=== PATIENT | male | born 1975 | race Caucasian/White ===

== ENCOUNTER 2018-03-11 11:54 | Emergency (ER) | payer MEDICARE, MEDICAID ==
[~2018-03-11] VITALS: Ht 177.8 cm; Wt 75.0 kg
[~2018-03-11 11:54] MED LIST: ALBU6.7H INH; AMOX500C2 PO; AZIT250T PO; OMEP20CA10 PO; ONDA4TAB12 PO
[2018-03-11 12:04] VITALS: BP 109/70
[2018-03-11 12:28] LABS: BASOPHILS # (AUTO) 0.1 X10'3 (0-0.2); BASOPHILS % (AUTO) 0.6 % (0-1); EOSINOPHILS # (AUTO) 0.3 X10'3 (0-0.9); EOSINOPHILS % (AUTO) 3.1 % (0-6); HEMATOCRIT 46.9 % (42.0-52.0); HEMOGLOBIN 15.2 g/dl (14.0-17.9); LYMPHOCYTES # (AUTO) 1.9 X10'3 (1.1-4.8); LYMPHOCYTES % (AUTO) 17.3 % (21-51); MEAN CORPUSCULAR HEMOGLOBIN 28.3 PG (27.0-31.0); MEAN CORPUSCULAR HGB CONC 32.5 % (33.0-36.5); MEAN CORPUSCULAR VOLUME 87.2 FL (78-98); MONOCYTES # (AUTO) 1.1 X10'3 (0-0.9); MONOCYTES % (AUTO) 9.9 % (2-12); NEUTROPHILS # (AUTO) 7.6 X10'3 (1.8-7.7); NEUTROPHILS % (AUTO) 69.1 % (42-75); PLATELET COUNT 251 X10'3 (140-440); RED BLOOD COUNT 5.38 X10'6 (4.70-6.10); RED CELL DISTRIBUTION WIDTH 13.5 % (11.5-14.5)
[2018-03-11 12:50] LABS: ALANINE AMINOTRANSFERASE 25 U/L (12-78); ALBUMIN 3.6 G/DL (3.4-5.0); ALBUMIN/GLOBULIN RATIO 1.1 (1.1-1.5); ALKALINE PHOSPHATASE 125 IU/L (46-116); ANION GAP 9 (8-16); ASPARTATE AMINO TRANSFERASE 13 U/L (10-37); BILIRUBIN,TOTAL 0.3 MG/DL (0.1-1.0); BLOOD UREA NITROGEN 10 MG/DL (7-18); BUN/CREATININE RATIO 10.4 (5.4-32.0); CHLORIDE 106 MMOL/L (99-107); CREATININE 0.96 MG/DL (0.60-1.10); GLUCOSE 93 MG/DL (70-104); POTASSIUM 3.7 MMOL/L (3.5-5.1); SODIUM 142 MMOL/L (135-145); TOTAL CARBON DIOXIDE 26.9 MMOL/L (24-32); TOTAL PROTEIN 6.9 G/DL (6.4-8.2); eGFR 85 ML/MIN
[2018-03-11 13:28] LABS: PARTIAL THROMBOPLASTIN TIME 31 SECONDS (22-32); PROTHROMBIN TIME 9.9 SECONDS (9.0-12.0)
[2018-03-11] MEDS ORDERED: ipratropium/albuterol 3ml nebule NEB ONE (13:30)
== END 2018-03-11 14:37 | disposition home or self-care (01) ==
LOC: ER 11:54
DX: B34.9 Viral infection, unspecified (principal); F17.200 Nicotine dependence, unspecified, uncomplicated; Z71.6 Tobacco abuse counseling; Z98.890 Other specified postprocedural states; Z79.899 Other long term (current) drug therapy
CPT/HCPCS: 36415; 71045; 80053; 84484; 85025; 85610; 85730; 93005; 94640; 94760; 99284

== ENCOUNTER 2019-03-27 08:04 | Emergency (ER) | payer MEDICARE, MEDICAID ==
[~2019-03-27] VITALS: Ht 180.3 cm; Wt 63.1 kg
[~2019-03-27 08:04] MED LIST changes: -ALBU6.7H INH; +ALBU6.7H9 INH; +OMEP-297 PO; -OMEP20CA10 PO
[2019-03-27 08:29] LABS: CLARITY,URINE CLEAR (Clear); COLOR,URINE YELLOW (Yellow); GLUCOSE, URINE NEGATIVE (Neg); KETONES,URINE NEGATIVE (Neg); LEUKOCYTE ESTERASE ,URINE NEGATIVE (Neg); NITRITES, URINE NEGATIVE (Neg); OCCULT BLOOD,URINE NEGATIVE (Neg); PH,URINE 6.5 (4.8-8.0); PROTEIN,URINE NEGATIVE (Neg)
[2019-03-27 08:30] LABS: UA COLLECTION TYPE NON-SPECIFIED
[2019-03-27 08:35] LABS: BASOPHILS # (AUTO) 0.1 X10'3 (0-0.2); BASOPHILS % (AUTO) 0.9 % (0-1); EOSINOPHILS # (AUTO) 0.2 X10'3 (0-0.9); EOSINOPHILS % (AUTO) 1.4 % (0-6); HEMOGLOBIN 16.6 g/dl (14.0-17.9); LYMPHOCYTES # (AUTO) 2.3 X10'3 (1.1-4.8); LYMPHOCYTES % (AUTO) 19.2 % (21-51); MEAN CORPUSCULAR HEMOGLOBIN 29.4 PG (27.0-31.0); MEAN CORPUSCULAR HGB CONC 33.8 g/dL (33.0-36.5); MEAN CORPUSCULAR VOLUME 86.9 FL (78-98); MEAN PLATELET VOLUME 8.6 FL (7.4-10.4); MONOCYTES # (AUTO) 0.9 X10'3 (0-0.9); MONOCYTES % (AUTO) 7.4 % (2-12); NEUTROPHILS # (AUTO) 8.4 X10'3 (1.8-7.7); NEUTROPHILS % (AUTO) 71.1 % (42-75); PLATELET COUNT 281 X10'3 (140-440); RED BLOOD COUNT 5.64 X10'6 (4.70-6.10); RED CELL DISTRIBUTION WIDTH 13.1 % (11.5-14.5); WHITE BLOOD COUNT 11.8 X10'3 (4.5-11.0)
[2019-03-27 08:49] LABS: ALANINE AMINOTRANSFERASE 26 U/L (12-78); ALBUMIN/GLOBULIN RATIO 1.3 (1.1-1.5); ALKALINE PHOSPHATASE 117 IU/L (46-116); ANION GAP 2 (8-16); ASPARTATE AMINO TRANSFERASE 13 U/L (10-37); BILIRUBIN,TOTAL 0.6 MG/DL (0.1-1.0); BLOOD UREA NITROGEN 10 MG/DL (7-18); BUN/CREATININE RATIO 9.2 (5.4-32.0); CALCIUM 9.2 MG/DL (8.5-10.1); CHLORIDE 105 MMOL/L (99-107); CREATININE 1.09 MG/DL (0.60-1.10); GLUCOSE 101 MG/DL (70-104); LIPASE 153 U/L (73-393); POTASSIUM 4.1 MMOL/L (3.5-5.1); SODIUM 140 MMOL/L (135-145); TOTAL CARBON DIOXIDE 32.6 MMOL/L (24-32); TOTAL PROTEIN 7.1 G/DL (6.4-8.2); eGFR 73 ML/MIN
[2019-03-27] MEDS ORDERED: POLY17PO10 PO (09:45)
[2019-03-27 09:56] VITALS: BP 120/87
== END 2019-03-27 09:59 | disposition home or self-care (01) ==
LOC: ER 08:05
DX: K59.00 Constipation, unspecified (principal); R11.2 Nausea with vomiting, unspecified; R10.84 Generalized abdominal pain; Z98.890 Other specified postprocedural states; Z79.899 Other long term (current) drug therapy
CPT/HCPCS: 36415; 74176; 80053; 81003; 83690; 85025; 99284

== ENCOUNTER 2019-03-29 19:37 | Emergency (ER) | payer MEDICARE, MEDICAID ==
[~2019-03-29] VITALS: Ht 180.3 cm; Wt 78.0 kg
[~2019-03-29 19:37] MED LIST changes: +POLY17PO10 PO
[2019-03-29 20:20] LABS: BASOPHILS # (AUTO) 0.1 X10'3 (0-0.2); BASOPHILS % (AUTO) 0.5 % (0-1); EOSINOPHILS # (AUTO) 0.2 X10'3 (0-0.9); EOSINOPHILS % (AUTO) 1.7 % (0-6); HEMATOCRIT 50.2 % (42.0-52.0); HEMOGLOBIN 17.1 g/dl (14.0-17.9); LYMPHOCYTES # (AUTO) 1.8 X10'3 (1.1-4.8); LYMPHOCYTES % (AUTO) 13.7 % (21-51); MEAN CORPUSCULAR HEMOGLOBIN 29.7 PG (27.0-31.0); MEAN CORPUSCULAR HGB CONC 34.1 g/dL (33.0-36.5); MEAN PLATELET VOLUME 8.8 FL (7.4-10.4); MONOCYTES # (AUTO) 1.4 X10'3 (0-0.9); MONOCYTES % (AUTO) 11.1 % (2-12); NEUTROPHILS # (AUTO) 9.5 X10'3 (1.8-7.7); PLATELET COUNT 274 X10'3 (140-440); RED BLOOD COUNT 5.77 X10'6 (4.70-6.10); RED CELL DISTRIBUTION WIDTH 12.7 % (11.5-14.5)
[2019-03-29 20:30] LABS: ALANINE AMINOTRANSFERASE 25 U/L (12-78); ALBUMIN 4.2 G/DL (3.4-5.0); ALBUMIN/GLOBULIN RATIO 1.3 (1.1-1.5); ALKALINE PHOSPHATASE 129 IU/L (46-116); ANION GAP 6 (8-16); ASPARTATE AMINO TRANSFERASE 16 U/L (10-37); BILIRUBIN,TOTAL 0.7 MG/DL (0.1-1.0); BLOOD UREA NITROGEN 19 MG/DL (7-18); BUN/CREATININE RATIO 16.4 (5.4-32.0); CHLORIDE 99 MMOL/L (99-107); CREATININE 1.16 MG/DL (0.60-1.10); ETHANOL < 0.010 GM/DL (0.0-0.010); GLUCOSE 103 MG/DL (70-104); LIPASE 368 U/L (73-393); POTASSIUM 3.8 MMOL/L (3.5-5.1); SODIUM 137 MMOL/L (135-145); TOTAL CARBON DIOXIDE 31.8 MMOL/L (24-32); TOTAL PROTEIN 7.5 G/DL (6.4-8.2); eGFR 68 ML/MIN
[2019-03-29 20:31] LABS: PARTIAL THROMBOPLASTIN TIME 28 SECONDS (22-32)
[2019-03-29] MEDS ORDERED: ONDA4TAB6 PO (20:44)
[2019-03-29 20:59] VITALS: BP 118/80
[2019-04-02] MEDS ORDERED: NO HOME MEDS (16:24)
== END 2019-03-29 21:00 | disposition home or self-care (01) ==
LOC: ER 19:38
DX: K29.00 Acute gastritis without bleeding (principal); K59.00 Constipation, unspecified; Z98.890 Other specified postprocedural states; Z79.2 Long term (current) use of antibiotics; Z79.899 Other long term (current) drug therapy
CPT/HCPCS: 36415; 80053; 80320; 83690; 83735; 85025; 85610; 85730; 93005; 99284

== ENCOUNTER 2020-08-30 09:59 | Emergency (ER) | payer MEDICARE, MEDICAID ==
[~2020-08-30] VITALS: Ht 172.7 cm; Wt 92.7 kg
[~2020-08-30 09:59] MED LIST changes: -ALBU6.7H9 INH; -AMOX500C2 PO; -AZIT250T PO; -OMEP-297 PO; -ONDA4TAB12 PO; +PANT-47 PO; -POLY17PO10 PO
[2020-08-30 10:19] VITALS: BP 118/75
[2020-08-30] MEDS ORDERED: ketorolac tromethamine 15mg/ml inj. IM ONE (10:40)
[2020-08-30] MEDS ORDERED: IBUP-1984 PO (11:15)
[2020-08-30] MEDS ORDERED: bacitracin 15gm ointment TP ONE (11:15)
== END 2020-08-30 11:36 | disposition home or self-care (01) ==
LOC: ER 10:00
DX: S20.212A Contusion of left front wall of thorax, initial encounter (principal); Z79.899 Other long term (current) drug therapy; W22.8XXA Striking against or struck by other objects, initial encounter; Y93.89 Activity, other specified; Y92.89 Other specified places as the place of occurrence of the external cause; Y99.8 Other external cause status
CPT/HCPCS: 71045; 96372; 99283; J1885

== ENCOUNTER 2021-06-06 17:01 | Emergency (ER) | payer MEDICARE, MEDICAID ==
[~2021-06-06] VITALS: Ht 175.3 cm; Wt 100.0 kg
[2021-06-06 17:28] VITALS: BP 137/92
== END 2021-06-06 17:45 | disposition home or self-care (01) ==
LOC: ER 17:02
DX: J06.9 Acute upper respiratory infection, unspecified (principal); Z98.890 Other specified postprocedural states; Z79.899 Other long term (current) drug therapy
CPT/HCPCS: 99282

== ENCOUNTER 2021-08-13 17:38 | Emergency (ER) | payer MEDICARE, MEDICAID ==
[~2021-08-13] VITALS: Ht 177.8 cm; Wt 92.7 kg
[2021-08-13] MEDS ORDERED: ipratropium/albuterol 3ml nebule NEB ONE (17:45)
[2021-08-13 17:46] VITALS: BP 123/81
[2021-08-13] MEDS ORDERED: AZIT250T2 PO (19:12)
[2021-08-13] MEDS ORDERED: ALB0.5UD IH (19:12)
[2021-08-13] MEDS ORDERED: PRED20TA PO (19:12)
== END 2021-08-13 19:34 | disposition home or self-care (01) ==
LOC: ER 17:46
DX: J06.9 Acute upper respiratory infection, unspecified (principal); R05.9 Cough, unspecified; R06.02 Shortness of breath; Z98.890 Other specified postprocedural states; Z79.2 Long term (current) use of antibiotics; Z79.899 Other long term (current) drug therapy
CPT/HCPCS: 71045; 87502; 87503; 94640; 94760; 99284

== ENCOUNTER 2022-07-09 16:47 | Inpatient (IN) | payer MEDICARE, MEDICAID ==
[~2022-07-09] VITALS: Ht 175.3 cm; Wt 69.1 kg
[~2022-07-09 16:47] MED LIST changes: +ALBU6.7H14 INH; +CARV3.12 PO; +ESCI10TA PO; +NICO-631 TD; +TAM75C PO
[2022-07-09] MEDS ORDERED: albuterol 2.5 MG/3 ML nebule CONTNEB ONE (16:55)
[2022-07-09] MEDS ORDERED: ipratropium/albuterol 3ml nebule NEB ONE (16:55)
[2022-07-09] MEDS ORDERED: methylPREDNISolone sod succ 125mg/2ml vial IV ONE (16:55)
--- NOTE | 2022-07-09 16:59 | NUR ---
Paged RT for G
[2022-07-09] MEDS ORDERED: normal saline 1000ML IV soln IVB ONE (17:00)
[2022-07-09] MEDS ORDERED: magnesium 2GM in 50ml NS 50 ML IV ONE (17:00)
[2022-07-09] MEDS ORDERED: CefTRIAXone 2gm/D5W 50ml BAG 50 ML IV ONE (17:05)
[2022-07-09 17:23] LABS: BASOPHILS # (AUTO) 0.1 X10'3 (0-0.2); EOSINOPHILS # (AUTO) 0.6 X10'3 (0-0.9); EOSINOPHILS % (AUTO) 4.1 % (0-6); HEMATOCRIT 45.5 % (42.0-52.0); HEMOGLOBIN 14.6 g/dl (14.0-17.9); LYMPHOCYTES # (AUTO) 2.9 X10'3 (1.1-4.8); LYMPHOCYTES % (AUTO) 19.9 % (21-51); MEAN CORPUSCULAR HEMOGLOBIN 27.3 PG (27.0-31.0); MEAN CORPUSCULAR HGB CONC 32.1 g/dL (33.0-36.5); MEAN CORPUSCULAR VOLUME 85.1 FL (78-98); MEAN PLATELET VOLUME 8.3 FL (7.4-10.4); MONOCYTES # (AUTO) 1.7 X10'3 (0-0.9); MONOCYTES % (AUTO) 11.7 % (2-12); NEUTROPHILS # (AUTO) 9.1 X10'3 (1.8-7.7); NEUTROPHILS % (AUTO) 63.3 % (42-75); PLATELET COUNT 317 X10'3 (140-440); RED BLOOD COUNT 5.35 X10'6 (4.70-6.10); WHITE BLOOD COUNT 14.4 X10'3 (4.5-11.0)
[2022-07-09 17:32] LABS: ABG BASE EXCESS -1.6 mmol/L (-2.0-2.0); ABG HCO3 28.3 mmol/L (22.0-26.0); ABG OXYGEN SATURATION 98.7 % (94-97); ABG PCO2 (T) 72.2 mmHg (35.0-48.0); ABG PO2 (T) 150.4 mmHg (75.0-100.0); ALLEN'S TEST POSITIVE; FCOHb 2.7 % (0.0-3.9); FLOW 8 L/min; FMetHb 0.4 % (0.0-1.5); FO2Hb 95.6 % (94-97); TOTAL HEMOGLOBIN 15.3 G/dl (14.0-17.9)
[2022-07-09 17:38] LABS: ALANINE AMINOTRANSFERASE 23 U/L (12-78); ALBUMIN 3.8 G/DL (3.4-5.0); ALKALINE PHOSPHATASE 142 IU/L (46-116); ANION GAP 9 (8-16); ASPARTATE AMINO TRANSFERASE 17 U/L (10-37); BILIRUBIN,TOTAL 0.3 MG/DL (0.1-1.0); BLOOD UREA NITROGEN 17 MG/DL (7-18); CALCIUM 8.9 MG/DL (8.5-10.1); CHLORIDE 106 MMOL/L (99-107); CREATININE 0.81 MG/DL (0.60-1.10); GLUCOSE 99 MG/DL (70-104); POTASSIUM 4.8 MMOL/L (3.5-5.1); SODIUM 143 MMOL/L (135-145); TOTAL CARBON DIOXIDE 28.4 MMOL/L (24-32); TOTAL PROTEIN 7.8 G/DL (6.4-8.2); eGFR > 90 ML/MIN
--- NOTE | 2022-07-09 18:04 | NUR ---
Patient hooked to BIPAP at 50% FiO2 by RT
[2022-07-09] MEDS ORDERED: potassium Cl 20 mEq SR tablet PO PRN ×2 (19:45)
[2022-07-09] MEDS ORDERED: mag hydrox/Alum hydrox/simeth 30ml oral suspension PO PRN (19:45)
[2022-07-09] MEDS ORDERED: acetaminophen 325mg tablet PO PRN (19:45)
[2022-07-09] MEDS ORDERED: potassium Cl 40MEQ/1/2NS 520ml 520 ML IV PRN (19:45)
[2022-07-09] MEDS ORDERED: magnesium hydroxide 30ml (MOM) UD suspension PO PRN (19:45)
[2022-07-09] MEDS ORDERED: magnesium 4gm in 100ml NS 100 ML IV PRN (19:45)
[2022-07-09] MEDS ORDERED: magnesium Cl slow-release 64mg tablet PO PRN (19:45)
[2022-07-09] MEDS ORDERED: ondansetron/PF 4mg/2ml inj IV PRN (19:45)
[2022-07-09] MEDS ORDERED: magnesium 2GM in 50ml NS 50 ML IV PRN (19:45)
[2022-07-09] MEDS ORDERED: prednisone 10mg tablet PO SCH (20:00)
[2022-07-09 20:32] LABS: ABG BASE EXCESS -1.5 mmol/L (-2.0-2.0); ABG HCO3 25.6 mmol/L (22.0-26.0); ABG OXYGEN SATURATION 98.1 % (94-97); ABG PCO2 (T) 52.4 mmHg (35.0-48.0); ABG PO2 (T) 110.8 mmHg (75.0-100.0); ALLEN'S TEST POSITIVE; FCOHb 1.6 % (0.0-3.9); FMetHb 0.4 % (0.0-1.5); FO2Hb 96.1 % (94-97); RESPIRATORY RATE 12 b/min; TOTAL HEMOGLOBIN 14.6 G/dl (14.0-17.9)
[2022-07-09] MEDS: K and/or MAG REPLACEMENT MC SCH (21:25)
[2022-07-09] MEDS: docusate sod 100mg capsule PO SCH (21:38)
[2022-07-09] MEDS: predniSONE 20 mg tablet PO SCH (21:44)
[2022-07-09] MEDS: heparin, porcine 5000 units/ml vial SQ SCH (21:45)
[2022-07-10] MEDS: albuterol 2.5 MG/3 ML nebule NEB PRN ×2 (02:59→17:37)
[2022-07-10] MEDS ORDERED: ALBU18HF2 PO ×2 (04:36→17:58)
[2022-07-10] MEDS ORDERED: PANT40TA54 PO (04:36)
[2022-07-10] MEDS ORDERED: FLUT1BLS4 INH ×2 (04:36→17:58)
[2022-07-10] MEDS ORDERED: ESCI-8 PO (04:36)
[2022-07-10] MEDS ORDERED: CARV3.122 PO (04:36)
[2022-07-10] MEDS ORDERED: IPRA3AMP31 NEB ×2 (04:36→17:58)
[2022-07-10 05:05] LABS: BASOPHILS # (AUTO) 0.1 X10'3 (0-0.2); BASOPHILS % (AUTO) 0.6 % (0-1); EOSINOPHILS % (AUTO) 0.1 % (0-6); HEMATOCRIT 42.8 % (42.0-52.0); LYMPHOCYTES # (AUTO) 0.9 X10'3 (1.1-4.8); MEAN CORPUSCULAR HGB CONC 32.8 g/dL (33.0-36.5); MEAN CORPUSCULAR VOLUME 85.2 FL (78-98); MEAN PLATELET VOLUME 8.4 FL (7.4-10.4); MONOCYTES # (AUTO) 0.1 X10'3 (0-0.9); MONOCYTES % (AUTO) 0.9 % (2-12); NEUTROPHILS # (AUTO) 9.9 X10'3 (1.8-7.7); NEUTROPHILS % (AUTO) 90.4 % (42-75); PLATELET COUNT 274 X10'3 (140-440); RED BLOOD COUNT 5.02 X10'6 (4.70-6.10); RED CELL DISTRIBUTION WIDTH 14.1 % (11.5-14.5); WHITE BLOOD COUNT 10.9 X10'3 (4.5-11.0)
[2022-07-10 05:19] LABS: ALANINE AMINOTRANSFERASE 23 U/L (12-78); ALBUMIN 3.4 G/DL (3.4-5.0); ALBUMIN/GLOBULIN RATIO 0.9 (1.1-1.5); ALKALINE PHOSPHATASE 127 IU/L (46-116); ANION GAP 8 (8-16); ASPARTATE AMINO TRANSFERASE 18 U/L (10-37); BILIRUBIN,TOTAL 0.2 MG/DL (0.1-1.0); BLOOD UREA NITROGEN 16 MG/DL (7-18); BUN/CREATININE RATIO 21.6 (10.0-20.0); CALCIUM 9.1 MG/DL (8.5-10.1); CHLORIDE 105 MMOL/L (99-107); CREATININE 0.74 MG/DL (0.60-1.10); GLUCOSE 142 MG/DL (70-104); MAGNESIUM 2.9 MG/DL (1.5-2.4); SODIUM 139 MMOL/L (135-145); TOTAL PROTEIN 7.3 G/DL (6.4-8.2); eGFR > 90 ML/MIN
[2022-07-10] MEDS: ipratropium/albuterol 3ml nebule NEB SCH ×2 (07:09→14:43)
[2022-07-10] MEDS ORDERED: pantoprazole 40mg Tablet.DR PO SCH (07:30)
[2022-07-10] MEDS ORDERED: ESCITALOPRAM OXALATE 5 MG TABLET PO SCH (08:00)
[2022-07-10] MEDS ORDERED: budesonide 0.5mg/2ml UD nebule IH SCH (08:00)
[2022-07-10] MEDS ORDERED: carVEDilol 3.125mg tablet PO SCH (08:00)
[2022-07-10] MEDS ORDERED: CefTRIAXone/D5W-Rocephin 1gm 50 ML IV SCH (08:00)
[2022-07-10] MEDS: docusate sod 100mg capsule PO SCH (09:12)
[2022-07-10] MEDS: heparin, porcine 5000 units/ml vial SQ SCH (09:14)
[2022-07-10] MEDS: K and/or MAG REPLACEMENT MC SCH (09:15)
[2022-07-10] MEDS: predniSONE 20 mg tablet PO SCH (09:21)
--- NOTE | 2022-07-10 16:47 | NUR ---
Received report from Zaida BILLY. Patient will be coming up in a wheelchair.
--- NOTE | 2022-07-10 16:51 | NUR ---
Patient arrived to unit via wheel chair. No complaints of pain or discomfort noted at this time.
[2022-07-10 17:07] VITALS: BP 133/77
[2022-07-10] MEDS ORDERED: PRED20TA PO (17:58)
--- NOTE | 2022-07-10 18:23 | NUR ---
Problems reprioritized. Patient report given, questions answered & plan of care reviewed with Chiara BILLY.
--- NOTE | 2022-07-10 18:58 | NUR ---
pt discharged, went home with around 18.50.Took his belongings with his.
== END 2022-07-10 18:50 | disposition home or self-care (01) | DRG 189 ==
LOC: ER 16:48 → ED HOLD 19:50 → PCU 3S 07-10 16:52
PROVIDERS: ADMIT Internal Medicine; ATTEND Family Medicine
PROC: 5A09357 Assistance with Respiratory Ventilation, Less than 24 Consecutive Hours, Continuous Positive Airway Pressure (ICD-10-PCS; principal; 2022-07-10)
DX: J96.01 Acute respiratory failure with hypoxia (principal); J44.1 Chronic obstructive pulmonary disease with (acute) exacerbation; J45.902 Unspecified asthma with status asthmaticus; J96.02 Acute respiratory failure with hypercapnia; D72.823 Leukemoid reaction; F31.9 Bipolar disorder, unspecified; I48.0 Paroxysmal atrial fibrillation; K21.9 Gastro-esophageal reflux disease without esophagitis; F17.200 Nicotine dependence, unspecified, uncomplicated; F41.9 Anxiety disorder, unspecified; Z79.899 Other long term (current) drug therapy
CPT/HCPCS: 36415; 36600; 71045; 80053; 82803; 83735; 83880; 84132; 84484; 85018; 85025; 87081; 94640; 94660; 94760; 96365; 96367; 96375; 99285; A7015; G0378; J0696; J1644; J2930; J3475; J7030; J7040; J7512

== ENCOUNTER 2023-01-27 22:48 | Emergency (ER) | payer MEDICARE, MEDICAID ==
[~2023-01-27] VITALS: Ht 175.3 cm; Wt 105.5 kg
[~2023-01-27 22:48] MED LIST changes: +ALBU18HF2 PO; -ALBU6.7H14 INH; -CARV3.12 PO; +CARV3.122 PO; +ESCI-8 PO; -ESCI10TA PO; +FLUT1BLS4 INH; +IPRA3AMP31 NEB; -NICO-631 TD; -PANT-47 PO; +PANT40TA54 PO; +PRED20TA PO; -TAM75C PO
[2023-01-27 22:59] VITALS: BP 152/94; PULSE 73; TEMP 97.7; O2SAT 95
[2023-01-27 23:46] LABS: BASOPHILS # (AUTO) 0.1 X10'3 (0-0.2); BASOPHILS % (AUTO) 0.7 % (0-1); EOSINOPHILS # (AUTO) 0.3 X10'3 (0-0.9); EOSINOPHILS % (AUTO) 2.3 % (0-6); HEMATOCRIT 46.4 % (42.0-52.0); HEMOGLOBIN 15.2 g/dl (14.0-17.9); LYMPHOCYTES # (AUTO) 1.9 X10'3 (1.1-4.8); LYMPHOCYTES % (AUTO) 12.6 % (21-51); MEAN CORPUSCULAR HEMOGLOBIN 27.4 PG (27.0-31.0); MEAN CORPUSCULAR HGB CONC 32.7 g/dL (33.0-36.5); MEAN CORPUSCULAR VOLUME 83.9 FL (78-98); MEAN PLATELET VOLUME 8.5 FL (7.4-10.4); MONOCYTES # (AUTO) 1.2 X10'3 (0-0.9); MONOCYTES % (AUTO) 7.8 % (2-12); NEUTROPHILS # (AUTO) 11.4 X10'3 (1.8-7.7); NEUTROPHILS % (AUTO) 76.6 % (42-75); PLATELET COUNT 260 X10'3 (140-440); RED BLOOD COUNT 5.53 X10'6 (4.70-6.10); RED CELL DISTRIBUTION WIDTH 14.6 % (11.5-14.5); WHITE BLOOD COUNT 14.8 X10'3 (4.5-11.0)
[2023-01-28 00:01] LABS: ALANINE AMINOTRANSFERASE 27 U/L (12-78); ALBUMIN 3.6 G/DL (3.4-5.0); ALKALINE PHOSPHATASE 149 IU/L (46-116); ANION GAP 5 (8-16); ASPARTATE AMINO TRANSFERASE 14 U/L (10-37); BILIRUBIN,TOTAL 0.2 MG/DL (0.1-1.0); BLOOD UREA NITROGEN 10 MG/DL (7-18); BUN/CREATININE RATIO 9.3 (10.0-20.0); CALCIUM 9.2 MG/DL (8.5-10.1); CHLORIDE 103 MMOL/L (99-107); CREATININE 1.07 MG/DL (0.60-1.10); GLUCOSE 113 MG/DL (70-104); LIPASE 37 U/L (16-77); POTASSIUM 4.4 MMOL/L (3.5-5.1); SODIUM 139 MMOL/L (135-145); TOTAL CARBON DIOXIDE 31.1 MMOL/L (24-32); TOTAL PROTEIN 7.3 G/DL (6.4-8.2); eCRCL 84 ML/MIN; eGFR 73 ML/MIN
[2023-01-28 00:33] LABS: BILIRUBIN,URINE NEGATIVE (Neg); CLARITY,URINE TURBID (Clear); COLOR,URINE YELLOW (Yellow); GLUCOSE, URINE NEGATIVE (Neg); KETONES,URINE TRACE mg/dl (Neg); LEUKOCYTE ESTERASE ,URINE NEGATIVE (Neg); NITRITES, URINE NEGATIVE (Neg); OCCULT BLOOD,URINE LARGE (Neg); PROTEIN,URINE 30 mg/dl (Neg); UROBILINOGEN,URINE 0.2 E.U/dL (0.2-1.0)
[2023-01-28] MEDS ORDERED: normal saline 1000ml 1,000 ML IV ONE (00:40)
[2023-01-28] MEDS ORDERED: ondansetron/PF 4mg/2ml inj IV ONE (00:40)
[2023-01-28 00:48] LABS: UA COLLECTION TYPE CLN CATCH MIDSTREAM
[2023-01-28 00:49] LABS: MUCUS STRANDS MODERATE /LPF (Neg); SQUAMOUS EPITHELIAL CELL,UR NONE SEEN /LPF (FEW)
[2023-01-28 00:53] LABS: RBC,URINE TNTC /HPF (0-2); WBC,URINE 0-4 /HPF (0-4)
[2023-01-28 00:54] LABS: BACTERIA,URINE 2+ /HPF (Neg)
[2023-01-28] MEDS ORDERED: iohexol 300mg/ml 100ml inj. ONE (01:10)
[2023-01-28 01:37] VITALS: RESP 14
[2023-01-28] MEDS ORDERED: proCHLORperazine 10 MG/2 ml inj IV ONE (01:50)
[2023-01-28] MEDS ORDERED: ketorolac trometh. 30mg/ml inj. IV ONE (03:10)
[2023-01-28] MEDS ORDERED: HYDR-3965 PO (03:45)
[2023-01-28] MEDS ORDERED: acetaminophen 325mg tablet PO ONE (03:45)
[2023-01-28] MEDS ORDERED: tamsulosin 0.4mg capsule PO ONE (03:45)
[2023-01-28] MEDS ORDERED: ONDA8TAB13 PO (03:45)
[2023-01-28] MEDS ORDERED: FLO0.4C PO (03:45)
--- NOTE | 2023-01-28 03:59 | NUR ---
IV DC'D PT BEING DISCHARGED DRESSING APPLIED
== END 2023-01-28 04:00 | disposition home or self-care (01) ==
LOC: ER 22:49
DX: N20.0 Calculus of kidney (principal)
CPT/HCPCS: 36415; 74177; 80053; 81001; 83690; 84145; 85025; 96374; 96375; 99285; J0780; J1885; J2405; J3490; J7030; Q9967

== ENCOUNTER 2023-11-17 10:36 | Emergency (ER) | payer MEDICAID, MEDICARE ==
[~2023-11-17] VITALS: Ht 177.8 cm; Wt 98.0 kg
[~2023-11-17 10:36] MED LIST changes: +ONDA-245 PO
[2023-11-17 11:06] LABS: BASOPHILS # (AUTO) 0.1 X10'3 (0-0.2); BASOPHILS % (AUTO) 1.2 % (0-1); EOSINOPHILS # (AUTO) 0.4 X10'3 (0-0.9); EOSINOPHILS % (AUTO) 3.5 % (0-6); HEMATOCRIT 48.2 % (42.0-52.0); HEMOGLOBIN 15.7 g/dl (14.0-17.9); LYMPHOCYTES % (AUTO) 18.8 % (21-51); MEAN CORPUSCULAR HEMOGLOBIN 28.4 PG (27.0-31.0); MEAN CORPUSCULAR HGB CONC 32.5 g/dL (33.0-36.5); MEAN CORPUSCULAR VOLUME 87.5 FL (78-98); MEAN PLATELET VOLUME 8.8 FL (7.4-10.4); MONOCYTES # (AUTO) 0.9 X10'3 (0-0.9); MONOCYTES % (AUTO) 8.7 % (2-12); NEUTROPHILS # (AUTO) 7.1 X10'3 (1.8-7.7); NEUTROPHILS % (AUTO) 67.8 % (42-75); PLATELET COUNT 231 X10'3 (140-440); RED BLOOD COUNT 5.51 X10'6 (4.70-6.10); RED CELL DISTRIBUTION WIDTH 13.8 % (11.5-14.5); WHITE BLOOD COUNT 10.5 X10'3 (4.5-11.0)
[2023-11-17 11:26] LABS: ALANINE AMINOTRANSFERASE 24 U/L (12-78); ALBUMIN 3.5 G/DL (3.4-5.0); ALKALINE PHOSPHATASE 140 IU/L (46-116); ANION GAP 9 (8-16); ASPARTATE AMINO TRANSFERASE 13 U/L (10-37); BILIRUBIN,TOTAL 0.5 MG/DL (0.1-1.0); BLOOD UREA NITROGEN 11 MG/DL (7-18); BUN/CREATININE RATIO 13.4 (10.0-20.0); CALCIUM 8.9 MG/DL (8.5-10.1); CHLORIDE 107 MMOL/L (99-107); CREATININE 0.82 MG/DL (0.60-1.10); GLUCOSE 102 MG/DL (70-104); POTASSIUM 3.9 MMOL/L (3.5-5.1); SODIUM 142 MMOL/L (135-145); TOTAL CARBON DIOXIDE 26.5 MMOL/L (24-32); eCRCL 111 ML/MIN; eGFR > 90 ML/MIN
[2023-11-17 11:33] LABS: PRO BRAIN NATRIURETIC PEPTIDE 219 PG/ML (0-125)
[2023-11-17] MEDS: diazepam 5mg tablet PO ONE (12:38)
[2023-11-17] MEDS: ketorolac trometh 30MG/ML vial 30 MG/ML VIAL IM ONE (12:39)
[2023-11-17 14:31] VITALS: BP 130/79; PULSE 87; RESP 16; TEMP 97.6; O2SAT 96
== END 2023-11-17 14:33 | disposition home or self-care (01) ==
LOC: ER 10:36
DX: M43.6 Torticollis (principal); M25.512 Pain in left shoulder; J45.909 Unspecified asthma, uncomplicated; K21.9 Gastro-esophageal reflux disease without esophagitis; F41.9 Anxiety disorder, unspecified; F32.A Depression, unspecified; Z79.899 Other long term (current) drug therapy
CPT/HCPCS: 36415; 71045; 80053; 83880; 84484; 85025; 93005; 96372; 99285; J1885

== ENCOUNTER 2023-11-22 10:35 | Emergency (ER) | payer MEDICAID ==
[~2023-11-22] VITALS: Ht 177.8 cm; Wt 103.5 kg
[2023-11-22 10:37] VITALS: TEMP 98
[2023-11-22] MEDS: ketorolac trometh 30MG/ML vial 30 MG/ML VIAL IR ONE (11:28)
[2023-11-22] MEDS: ondansetron 4mg rapidly disintigrating tab PO ONE (11:29)
[2023-11-22] MEDS: HYDROcodone/acetaminophen 10/325mg tab PO ONE (11:29)
[2023-11-22] MEDS: orphenadrine citrate 60mg/2ml inj. IM ONE (11:30)
[2023-11-22] MEDS ORDERED: NAPR500T6 PO (11:59)
[2023-11-22] MEDS ORDERED: TIZA4CAP PO (11:59)
[2023-11-22] MEDS ORDERED: GABA-530 PO (11:59)
[2023-11-22 12:11] VITALS: BP 124/67; PULSE 74; RESP 18; O2SAT 98
== END 2023-11-22 12:14 | disposition home or self-care (01) ==
LOC: ER 10:36
DX: M43.6 Torticollis (principal); M54.2 Cervicalgia; J45.909 Unspecified asthma, uncomplicated; K21.9 Gastro-esophageal reflux disease without esophagitis; F41.9 Anxiety disorder, unspecified; F32.A Depression, unspecified; Z79.899 Other long term (current) drug therapy
CPT/HCPCS: 72125; 96372; 99285; J1885; J2360

== ENCOUNTER 2023-12-02 16:19 | Emergency (ER) | payer MEDICAID ==
[~2023-12-02] VITALS: Ht 177.8 cm; Wt 92.0 kg
[~2023-12-02 16:19] MED LIST changes: +GABA-530 PO; +NAPR500T6 PO; +TIZA4CAP PO
[2023-12-02 16:31] VITALS: BP 135/94; PULSE 85; RESP 16; TEMP 97.5; O2SAT 95
[2023-12-02] MEDS ORDERED: MELO-102 PO (17:29)
[2023-12-02] MEDS ORDERED: METH-798 PO (17:29)
== END 2023-12-02 18:18 | disposition home or self-care (01) ==
LOC: ER 16:19
DX: M25.512 Pain in left shoulder (principal); J45.909 Unspecified asthma, uncomplicated; K21.9 Gastro-esophageal reflux disease without esophagitis; F32.A Depression, unspecified; Z79.899 Other long term (current) drug therapy; Z79.2 Long term (current) use of antibiotics
CPT/HCPCS: 99283

== ENCOUNTER 2023-12-04 08:42 | Emergency (ER) | payer MEDICAID ==
[~2023-12-04] VITALS: Ht 177.8 cm; Wt 92.1 kg
[~2023-12-04 08:42] MED LIST changes: +MELO-102 PO; +METH-798 PO
--- NOTE | 2023-12-04 09:19 | NUR ---
PATIENT PRESENTS TO THE ER VIA AMBULANCE FOR "PANIC" THAT STARTED THIS MORNING AROUND 0700 AFTER TAKING METHOCARBAMOL. PATIENT SEEN LAST NIGHT IN ER FOR SHOULDER PAIN. PATIENT DENIES HI/SI.
[2023-12-04] MEDS: LORazepam 1 MG tablet PO ONE (09:53)
[2023-12-04 10:31] VITALS: BP 134/98; PULSE 88; RESP 16; TEMP 97.8; O2SAT 100
== END 2023-12-04 10:32 | disposition home or self-care (01) ==
LOC: ER 08:42
DX: F41.9 Anxiety disorder, unspecified (principal); F41.0 Panic disorder [episodic paroxysmal anxiety]; J45.909 Unspecified asthma, uncomplicated; K21.9 Gastro-esophageal reflux disease without esophagitis; F32.A Depression, unspecified; Z79.899 Other long term (current) drug therapy; Z79.2 Long term (current) use of antibiotics
CPT/HCPCS: 99283

== ENCOUNTER 2024-02-19 10:06 | Outpatient (CLI) | payer MEDICAID ==
[~2024-02-19] VITALS: Ht 177.8 cm; Wt 99.3 kg
[~2024-02-19 10:06] MED LIST changes: +NAPR-1480 PO; -NAPR500T6 PO
[2024-02-19] MEDS: albuterol 2.5 MG/3 ML nebule NEB ONE (11:01)
[2024-02-19 11:02] VITALS: PULSE 80; RESP 16; O2SAT 95
[2024-02-19 11:13] VITALS: PULSE 73; RESP 16
== END 2024-02-19 23:59 | disposition home or self-care (01) ==
LOC: RT 10:06
PROVIDERS: ATTEND Physician Assistant
DX: J44.9 Chronic obstructive pulmonary disease, unspecified (principal)
CPT/HCPCS: 94060; 94729; 94760

== ENCOUNTER 2024-07-10 10:06 | Emergency (ER) | payer MEDICAID ==
[~2024-07-10] VITALS: Ht 177.8 cm; Wt 101.0 kg
[~2024-07-10 10:06] MED LIST changes: +AMOX-419 PO; -MELO-102 PO; +PANT40SU2 PO; -PANT40TA54 PO; +PRED10TA23 PO; -PRED20TA PO; -TIZA4CAP PO
[2024-07-10 10:08] VITALS: BP 110/76; PULSE 83; RESP 18; O2SAT 90
[2024-07-10] MEDS ORDERED: DOXY-462 PO (11:01)
[2024-07-10 11:08] VITALS: TEMP 97.7
== END 2024-07-10 11:10 | disposition home or self-care (01) ==
LOC: ER 10:07
DX: R21 Rash and other nonspecific skin eruption (principal); J45.909 Unspecified asthma, uncomplicated; K21.9 Gastro-esophageal reflux disease without esophagitis; F41.9 Anxiety disorder, unspecified; F32.A Depression, unspecified; Z98.890 Other specified postprocedural states; Z79.899 Other long term (current) drug therapy
CPT/HCPCS: 99283

== ENCOUNTER 2024-08-05 10:34 | Outpatient (CLI) | payer MEDICAID ==
--- NOTE | 2024-08-05 11:42 | RADIOLOGY REPORT ---
EXAM: DI CHEST,TWO VIEWS CLINICAL HISTORY: COPD; ARF COMPARISON: None TECHNIQUE: Frontal and lateral view of the chest was obtained FINDINGS: Lines and Tubes: None Lungs: No focal consolidation. Pleura: No effusion. No pneumothorax. Cardiomediastinal contours: Unremarkable Bones: No acute osseous abnormality. IMPRESSION: No acute cardiopulmonary disease.
== END 2024-08-05 23:59 | disposition home or self-care (01) ==
LOC: RAD 10:34
PROVIDERS: ATTEND Physician Assistant
DX: J44.9 Chronic obstructive pulmonary disease, unspecified (principal)
CPT/HCPCS: 71046

== ENCOUNTER 2024-08-14 09:41 | Outpatient (CLI) | payer MEDICAID ==
[~2024-08-14] VITALS: Ht 177.8 cm; Wt 102.1 kg
[~2024-08-14 09:41] MED LIST changes: -PRED10TA23 PO
[2024-08-14] MEDS: albuterol 2.5 MG/3 ML nebule NEB ONE (10:20)
[2024-08-14 10:21] VITALS: PULSE 93; RESP 18; O2SAT 93
[2024-08-14 10:33] VITALS: PULSE 90; RESP 16
--- NOTE | 2024-08-14 14:57 | PROCEDURE NOTE - Respiratory ---
Procedure Note-Respiratory Providers to Copies To 1: JOHN ESCOBAR NP Procedure Name: This is a spirometry study dated August 14, 2024. The spirometry study was performed both before and after inhaled bronchodilator. Spirometry measurements: There is severe reduction in both the forced vital capacity and the FEV1. The FEV1 ratio is quite poor. All of the measured flow rates are extremely low. After inhaled bronchodilator was administered, there is small but significant improvement in the FEV1 and the flow rates. Conclusion: This study is severely abnormal. There is evidence for severe obstructive ventilatory defect. There is a small amount of reversibility in the airway obstruction. This patient should continue to receive bronchodilator therapy. These findings are consistent with the patient's diagnosis of advanced smoking-related COPD. We have a previous study for comparison dated February 19, 2024. Over the past six months the pre bronchodilator FEV1 measurement has deteriorated from 0.99 L to 0.88 L. The FEV1 post bronchodilator measurement shows slight improvement from 1.28 L to 1.41 L Close pulmonary follow-up is recommended for this patient with severely abnormal lung function. VIJAYA GOMEZ MD August 14, 2024 14:57
== END 2024-08-14 23:59 | disposition home or self-care (01) ==
LOC: RT 09:41
PROVIDERS: ATTEND Nurse Practitioner Family
DX: J44.9 Chronic obstructive pulmonary disease, unspecified (principal); J18.9 Pneumonia, unspecified organism
CPT/HCPCS: 94060; 94760

== ENCOUNTER 2025-02-04 14:27 | Outpatient (CLI) | payer MEDICAID ==
--- NOTE | 2025-02-04 17:31 | RADIOLOGY REPORT ---
CLINICAL HISTORY: OTHER NONSPECIFIC ABNORMAL FINDING OF LUNG FIELD TECHNIQUE: CT of the chest was performed without intravenous contrast. This exam was performed according to our departmental dose optimization program. Up-to-date CT equipment and radiation dose reduction techniques are utilized as appropriate. COMPARISON: CT CTA CHEST PE W/ IV CONTRAST on DOS: 07/05/24, CT CT ABDOMEN PELVIS on DOS: 01/28/23 FINDINGS: Lower Neck: Unremarkable Axilla, Mediastinum and Nohelia: No axillary lymphadenopathy. Scattered mildly prominent though predominantly normal-sized mediastinal lymph nodes have decreased in size since prior. Limited evaluation of the nohelia in the absence of intravenous contrast. Heart and Great Vessels: Normal-sized heart without pericardial effusion. The thoracic aorta is normal in caliber. The central pulmonary arteries are normal caliber. Airway, Lungs and Pleura: Trachea and central airways are patent. Linear areas of atelectasis or scarring in the lungs. There is mild upper lobe predominant centrilobular emphysema. Near-complete resolution of previously identified tree-in-bud opacities with a few scattered tiny nodular opacities remaining, for example in the left lower lobe on series 3, image 59. mild bronchial wall thickening. No airspace consolidation or pneumothorax. Trace bilateral pleural effusions Upper Abdomen: No acute abnormality. Chest Wall and Osseous Structures: Mild thoracic spondylosis. No destructive osseous lesion. IMPRESSION: 1. Near-complete resolution of previously identified findings of atypical infection. 2. No new or enlarging pulmonary nodule, airspace consolidation, or new acute abnormality. 3. Trace bilateral pleural effusions. 4. Mild centrilobular emphysema. Radiation optimization: All CT scans at this facility use at least one of these dose optimization techniques: automated exposure control mA and/or kV adjustment per patient size (includes targeted exams where dose is matched to clinical indication) or iterative reconstruction.
== END 2025-02-04 23:59 | disposition home or self-care (01) ==
LOC: RAD 14:27
PROVIDERS: ATTEND Internal Medicine Critical Care Medicine
DX: R91.8 Other nonspecific abnormal finding of lung field (principal); J43.2 Centrilobular emphysema; R59.0 Localized enlarged lymph nodes; M47.814 Spondylosis without myelopathy or radiculopathy, thoracic region
CPT/HCPCS: 71250